=== PATIENT | male | born 1970 | race Caucasian/White ===

== ENCOUNTER → 2016-09-03 | Outpatient (CLI) | payer OTHER ==
[~2016-09-03] MED LIST: ALDACTONE25 MG; ALLP100T; AMLO10TA PO; ASP325T; BUDE6HFA; CYAN1TAB21; EZET1TAB16; FLT05NA16; FURO40TA4 PO; METF500T8 PO; MMT17NA NS; MTX2.5T PO; MULT1TAB12 PO; NF-XOP-HFA INH; PANT40TA PO; PENT400T2 PO; PRD20T; PRED5TAB PO; SPRN25T PO
--- NOTE | 2016-09-03 17:27 | Diagnostic Imaging Report ---
PROCEDURE: CT chest without contrast. TECHNIQUE: Multiple contiguous axial images were obtained through the chest without the use of intravenous contrast. INDICATION: Shortness of breath, congestion over the last 5 months, 3 rounds of antibiotics, not getting better, status post gastric sleeve. Lung biopsy in 2001, sarcoidosis. COMPARISON STUDY: Plain films of the chest from [address] scan from 2010. FINDINGS: Prominent vessels are seen over the subcutaneous tissues in the right upper chest wall. This is most likely due to collateral pathways from a stenosed subclavian vein. The heart size is normal. Small calcified lymph nodes are seen in the mediastinum, hilar regions and subcarinal regions bilaterally. No enlarged lymph nodes are identified. There are no pleural effusions. Mild calcification is seen posteriorly in the right lung base. The visualized portions of the abdomen appear unremarkable. Postoperative changes are seen in the stomach. Central peribronchial soft tissue thickening is again identified right greater than left. This has not progressed from the previous exam. There is some thickening of the intralobular septum. No focal areas of infiltrates are present. No pulmonary masses are present. IMPRESSION: Stable interstitial lung disease and pleural thickening. Calcified lymph nodes are present. Findings are consistent with stable sarcoidosis. Dictated by: Dictated on workstation # [id number]
== END ==
LOC: RAD 15:53
PROVIDERS: ATTEND Nurse Practitioner Family
DX: R06.02 Shortness of breath (principal); J84.9 Interstitial pulmonary disease, unspecified
CPT/HCPCS: 71250

== ENCOUNTER → 2016-12-24 | Outpatient (CLI) | payer BC ==
--- NOTE | 2016-12-24 13:35 | Diagnostic Imaging Report ---
PA and lateral views of the chest. INDICATION: Wheezing. History of sarcoidosis. FINDINGS: There is interstitial thickening in the lungs which appears to be chronic. The heart size is normal. There is a small right pleural effusion. No left effusion. No pneumothorax. Mediastinum and candice appear unremarkable. IMPRESSION: There is prominent interstitial thickening likely chronic fibrotic changes. Small right pleural effusion or pleural thickening also seen. Dictated by: Dictated on workstation # [id number]
== END ==
LOC: RAD 11:22
PROVIDERS: ATTEND Nurse Practitioner Family
DX: R91.8 Other nonspecific abnormal finding of lung field (principal)
CPT/HCPCS: 71020

== ENCOUNTER → 2019-02-20 | Outpatient (CLI) | payer BC ==
--- NOTE | 2019-02-20 13:05 | Diagnostic Imaging Report ---
PROCEDURE: CT chest with contrast only. TECHNIQUE: Multiple contiguous axial images were obtained through the chest after administration of intravenous contrast. Auto Exposure Controls were utilized during the CT exam to meet ALARA standards for radiation dose reduction. INDICATION: Asthma, sarcoidosis, cough. COMPARISON: Study compared 09/03/2016. FINDINGS: Calcified lymph nodes in the bilateral candice, aorticopulmonary window, subcarinal mediastinum and right paratracheal space all are unchanged from previous exam. Areas of pulmonary parenchymal calcification are stable. A reticular nodular interstitial pattern greatest in the mid to lower thirds of the lungs does show mild generalized progression. There is increased thickening of the central airways. Pleural thickening is an unchanged finding. No effusion or pneumothorax. There are some chest wall collaterals with a slitlike SVC unchanged. Incompletely visualized spleen was nonfocal. No acute upper abdominal abnormality. IMPRESSION: Increased interstitial disease predominately involves the mid to lower thirds of lungs with stable calcified hilar and mediastinal lymph nodes. Stable calcified and noncalcified pleural thickening and stable scattered parenchymal calcifications. Dictated by: Dictated on workstation # [id number]
== END ==
LOC: RAD 11:46
PROVIDERS: ATTEND Internal Medicine Pulmonary Disease
DX: J84.9 Interstitial pulmonary disease, unspecified (principal); J92.9 Pleural plaque without asbestos; D86.9 Sarcoidosis, unspecified
CPT/HCPCS: 71260

== ENCOUNTER → 2019-04-14 | Outpatient (CLI) | payer BC ==
--- NOTE | 2019-04-14 15:29 | Diagnostic Imaging Report ---
PROCEDURE: CT sinuses without contrast TECHNIQUE: Multiple contiguous axial images were obtained through the sinuses without the use of intravenous contrast. Coronal and sagittal reformations were then performed. Auto Exposure Controls were utilized during the CT exam to meet ALARA standards for radiation dose reduction. All CT scans use one or more of the following dose optimizing techniques: automated exposure control, MA and/or KvP adjustment based on patient size and exam type or iterative reconstruction. INDICATION: Sinus drainage. FINDINGS: There is opacification of the majority of the frontal sinus. There are numerous ethmoid air cells opacified bilaterally, particularly right-sided ethmoid air cells. Sphenoid sinus is clear. There are air fluid levels in bilateral maxillary sinuses which are moderately opacified. The visualized mastoids appear to be well aerated. There is opacification of bilateral ostiomeatal complexes. Nasal septum shows slight deviation to the right. IMPRESSION: Pansinusitis. Dictated by: Dictated on workstation # [id number]
== END ==
LOC: RAD 13:42
PROVIDERS: ATTEND Internal Medicine
DX: J32.4 Chronic pansinusitis (principal); J34.89 Other specified disorders of nose and nasal sinuses
CPT/HCPCS: 70486